=== PATIENT | male | born 1990 | race Caucasian/White ===

== ENCOUNTER → 2018-03-01 | Outpatient (CLI) | payer MEDICARE ==
[~2018-03-01] MED LIST: BACTRIM DS 8001 TAB PO; CELEBREX 1100 MG/CAP PO; CEPHALEXIN500 M1 PO; CLEOCIN HC150 MG/CAP PO; EFFEXOR 75M75 MG/TAB PO; ELIQUIS 5MG PO; FLEXERIL10 MG PO; INDERAL40 MG PO; NAPROSYN PO; NEURONTIN600 MG/TAB PO; NO HOME MEDICATIONS; NORCO 325 MG-51 TAB PO; PERCOCET 5/321 UDTAB PO; PRIMSOL50 MG/5 ML OD; PROTONIX20 MG PO; REGLAN 5MG T5 MG/TAB PO; SYMMETREL100 MG PO; ZYBAN150 M1 PO
== END ==
LOC: COL.RAD 13:53
DX: S06.9X0A Unspecified intracranial injury without loss of consciousness, initial encounter (principal); G93.89 Other specified disorders of brain
CPT/HCPCS: Q9967

== ENCOUNTER 2018-12-18 14:15 | Outpatient (RCR) | payer MEDICARE, MEDICAID | END 2018-12-25 | disposition home or self-care (01) | LOC: WSST | DX: I69.351 Hemiplegia and hemiparesis following cerebral infarction affecting right dominant side (principal); I69.322 Dysarthria following cerebral infarction; I69.319 Unspecified symptoms and signs involving cognitive functions following cerebral infarction; W34.00XS Accidental discharge from unspecified firearms or gun, sequela ==

== ENCOUNTER 2019-01-04 23:50 | Emergency (ER) | payer MEDICARE, MEDICAID ==
[~2019-01-04] VITALS: Ht 198.1 cm; Wt 90.9 kg
[2019-01-05 00:20] VITALS: BP 140/89; TEMP 97.7
[2019-01-05 02:20] VITALS: PULSE 106
== END 2019-01-05 02:20 | disposition home or self-care (01) ==
LOC: COL.ER 23:50
DX: S62.92XA Unspecified fracture of left hand, initial encounter for closed fracture (principal); W22.8XXA Striking against or struck by other objects, initial encounter; Y92.009 Unspecified place in unspecified non-institutional (private) residence as the place of occurrence of the external cause
CPT/HCPCS: Q4050

== ENCOUNTER → 2021-08-20 | Outpatient (CLI) | payer MEDICARE, MEDICAID | LOC: COL.RAD 13:00 | DX: S06.9X9S Unspecified intracranial injury with loss of consciousness of unspecified duration, sequela (principal); G93.89 Other specified disorders of brain ==

== ENCOUNTER → 2021-09-15 | Outpatient (CLI) | payer MEDICARE, MEDICAID | LOC: COL.CARD 10:00 | DX: S06.9X9S Unspecified intracranial injury with loss of consciousness of unspecified duration, sequela (principal) ==